=== PATIENT | female | born 1950 | race Hispanic/Latino ===

== ENCOUNTER 2018-04-12 06:53 | Day surgery (SDC) | payer MEDICARE ==
[2018-04-02 15:13] VITALS: BMI 26.2
[2018-04-12 07:26] LABS: BASO # 0.03 K/mm3 (0.0-2.0); BASO % 0.6 % (0.0-3.0); EOS # 0.1 (0.0-0.7); EOS % 2.9 % (1.5-5.0); GRAN # 2.53 (1.4-6.5); GRAN % 53.2 % (50.0-68.0); HEMOGLOBIN 13.9 g/dL (12.0-16.0); LYMPH # 1.8 (1.2-3.4); LYMPH % 37.8 % (22.0-35.0); MEAN CELL VOLUME 89.9 fl (80.0-105.0); MEAN CORPUSCULAR HEMOGLOBIN 29.8 pg (25.0-35.0); MEAN CORPUSCULAR HGB CONC 33.1 g/dl (31.0-37.0); MEAN PLATELET VOLUME 9.1 fl (7.0-11.0); MONO # 0.3 (0.1-0.6); MONO % 5.5 % (1.0-6.0); RBC 4.67 10^6/uL (3.5-6.1); RED CELL DISTRIBUTION WIDTH 12.4 % (11.5-14.5); WHITE BLOOD COUNT 4.8 10^3/ul (4.5-11.0)
[2018-04-12 07:31] LABS: INR 0.95; PARTIAL THROMBOPLASTIN TIME 31.8 Seconds (25.1-36.5); PROTHROMBIN TIME 10.9 SECONDS (9.4-12.5)
[2018-04-12 07:33] LABS: BLOOD UREA NITROGEN 23 mg/dL (7-21); CALCIUM 9.7 mg/dL (8.4-10.5); GFR NON-AFRICAN AMERICAN > 60; HDL CHOLESTEROL 65 mg/dL (29-60)
[2018-04-12 07:44] LABS: LDL CHOLESTEROL 100 mg/dL (0-129)
[2018-04-12] MEDS ORDERED: Iodixanol 320 MG/ML 200 ML BOTTLE IV ONE (08:08)
[2018-04-12] MEDS ORDERED: Verapamil 0 ML ONE (08:08)
[2018-04-12] MEDS ORDERED: Lidocaine 2% PF (10 ml) Amp ONE (08:08)
[2018-04-12 08:12] VITALS: RESP 20
[2018-04-12] MEDS ORDERED: Midazolam 2 MG/2 ML VIAL ONE ×2 (08:44→09:07)
--- NOTE | 2018-04-12 08:46 | HP ---
REASON FOR ADMISSION: Left heart catheterization, possible angioplasty, abnormal stress test. BRIEF CLINCIAL HISTORY: This is a 67-year-old female with past medical history significant for hypertension, gastroesophageal reflux, complaining of left shoulder pain on walking, went for stress test, abnormal, patient is scheduled for elective cardiac catheterization, possible angioplasty. PAST MEDICAL HISTORY: Significant for hypertension, gastroesophageal reflux. SOCIAL HISTORY: Denies smoking. Denies any history of alcohol abuse. RECENT CARDIAC WORKUP: As follows, patient had a stress test dated 03/16/2018 that shows probably abnormal myocardial perfusion study, partially reversible apical defect suspicious for ischemia, ejection fraction 63%, dated 03/16/2018. Patient had a stress test. Echo dated 03/15/2018, that showed ejection fraction 55% to 60%, mild mitral regurgitation, mild tricuspid regurgitation, dated 03/15/2018, RVSP 30. CURRENT MEDICATIONS: Patient is taking amlodipine 10 mg daily,Aspirin 81 mg daily, Nexium 40 mg daily, vitamin D 1000 units daily. ALLERGIES: NO KNOWN DRUG ALLERGY. REVIEW OF SYSTEMS: As per HPI. PHYSICAL EXAMINATION: VITAL SIGNS: As follows, height of the patient 5 feet 3 inches, weight of the patient 148 pounds, body mass index 26.2 kg/sq. m. Rest of the examination as follows, temperature afebrile, heart rate 68, blood pressure 130/80. HEENT: PERRLA. Extraocular muscles intact. NECK: Supple. No carotid bruits or thyromegaly. CHEST: Clear to auscultation. HEART: S1, S2 regular. ABDOMEN: Soft. EXTREMITIES: Clubbing and cyanosis, negative. LABORATORY DATA: Blood workup pending. IMPRESSION: Abnormal stress test suspicious for anterior wall ischemia, hypertension, hyperlipidemia, mild mitral regurgitation, mild tricuspid regurgitation. RECOMMENDATION: We will review the blood work when it is available. When the blood workup is available, is okay, we will load with aspirin, Plavix. Risks,benefits and alternatives were discussed with the patient. Patient agreed. We will proceed for cardiac catheterization. Further recommendation after cardiac catheterization. We will follow with you. Thank you, Dr. Terrazas, for providing us the opportunity in taking care of the patient, Felicita Adame. Inez Miller MD [facility] # [id number] SARAH
[2018-04-12] MEDS ORDERED: Bacitracin 500 Units/gm Oint Foilpak UD TOP ONE (09:35)
[2018-04-12] MEDS ORDERED: Sodium Chloride 0.9% 1,000 ML IV SCH (09:45)
[2018-04-12 09:57] VITALS: TEMP 97.9
--- NOTE | 2018-04-12 09:57 | CPOSTOP ---
DATE: 04/12/2018 CARDIOVASCULAR LAB POST PROCEDURE NOTE PHYSICIAN: Inez Miller MD. POLE TRUCK DRIVER: Justin health record technician. TYPE OF ANESTHESIA: Moderate conscious sedation. Total 3 of Versed, 150 of fentanyl given. Periodically started 1 mg Versed, 50 of fentanyl. PRE-PROCEDURE DIAGNOSES: Unstable angina, chest pain, abnormal stress test. PROCEDURE PERFORMED: Left heart catheterization. FINDINGS: Nonobstructive coronary artery disease. FINAL DIAGNOSIS: Nonobstructive coronary artery disease. VASCULAR ACCESS SITE: Left radial. CLOSURE DEVICE: TR Band. TOTAL RADIATION DOSE: 1908.56 milligray unit. TOTAL FLUORO TIME: 1.5 minutes. Inze Miller MD
[2018-04-12 10:53] VITALS: O2SAT 98
[2018-04-12] MEDS ORDERED: Bacitracin 500 Units/gm Oint Foilpak UD ONE (12:02)
[2018-04-12 13:23] VITALS: BP 110/66; PULSE 75
--- NOTE | 2018-04-12 14:46 | CARD ---
APPROVED REPORT Date of service: 04/12/2018 EKG Measurement Heart [id number] <Conclusion> Normal sinus rhythm Normal ECG
--- NOTE | 2018-04-12 14:52 | CARD ---
APPROVED REPORT Date of service: 04/12/2018 Procedure(s) performed: Left Heart Catheterization HISTORY The patient is a 67 year-old female with a history of : most recent EF: 63%. (EF Method: RADIONUCLIDE), hypertension , c/o Chest pain occasionally on walking who underwent Stress test, showed abnormal , apical ischemia.. INDICATION The indication(s) include : positive stress test. CASE TECHNIQUE The patient was brought electively to the Cardiac Catheterization Laboratory in a fasting state and was prepped and draped in a sterile manner. The left wrist was infiltrated with 2% Lidocaine subcutaneous anesthesia. A 6FR GLIDESJournalDocTH ACCESS KIT sheath was inserted into the left radial artery without difficulty. Coronary angiography was performed using coronary diagnostic catheters. The left coronary system was accessed and visualized with a Diagnostic,5 Fr JL 3.5 catheter. The right coronary system was accessed and visualized with a Diagnostic ,5 Fr JR 3.5 catheter. The left ventricle was accessed and visualized with a 5F PIGTAIL 145 CATH DXT 110 CM catheter. Left ventricular/Aortic Valve gradient assessed on pullback. Left ventriculogram was performed in BENNETT projection. Closure device was deployed with a Fr TR Band (Regular) without any complications. The patient tolerated the procedure well and there were no complications associated with the procedure. Vessel Analysis The patient's coronary anatomy is right dominant. The left main coronary artery is a large size vessel without significant stenosis. The left main bifurcates to the left anterior descending and circumflex. The left anterior descending artery is a medium size vessel with diffuse calcification noted throughout this vessel and without significant stenosis. There is a 30-40% stenosis in the mid segment. No focal stenosis , but change in calbre from proximal to Mid LAD , alsdio Mid LAD has intra myocardial course . The first diagonal branch is a medium size vessel without significant stenosis. The second diagonal branch is a medium size vessel without significant stenosis. The third diagonal branch is a small size vessel with intimal irregularities and without significant stenosis. The circumflex artery is a small size vessel with intimal irregularities and without significant stenosis. The first obtuse marginal branch is a small size vessel without significant stenosis. The right coronary artery is a medium size vessel without significant stenosis. The right posterior descending artery is a medium size vessel without significant stenosis. The right posterolateral branch is a medium size vessel without significant stenosis. Left Ventricle The left ventricle is normal in size with normal contractility. There was no cardiomyopathy. The left ventricular ejection fraction is estimated to be 60-65%. The left ventricular end diastolic pressure is 1012 mmHg. There was no gradient across the aortic valve upon pullback. Conclusion Non obstructive CAD limited to Mid LAD,Change in calibre from proximal to Mid LAD with 30-40% stenosis, but no flow limiting stenosis noted, Mid LAD has also Intra-myocardial course ( myocartdial Bridge). Preserved LV Fx. EF-60-65%. EDP-10-12 mmof Hg. Recommendations Aggressive Medical Therapy Consider GI W/u for non ischemic Chest pain. CC; dr. Terrazas
== END 2018-04-12 13:20 | disposition home or self-care (01) ==
LOC: CATH 06:53
PROVIDERS: ATTEND Internal Medicine Cardiovascular Disease
DX: I25.110 Atherosclerotic heart disease of native coronary artery with unstable angina pectoris (principal); I10 Essential (primary) hypertension; K21.9 Gastro-esophageal reflux disease without esophagitis; E78.5 Hyperlipidemia, unspecified; I08.1 Rheumatic disorders of both mitral and tricuspid valves; Z79.82 Long term (current) use of aspirin
CPT/HCPCS: 36415; 80048; 80061; 85025; 85610; 85730; 86850; 86900; 93005; 93458; 99152; 99153; C1769; C1887; J1644; J2250; J3010; J7030; Q9966

== ENCOUNTER 2018-06-18 09:10 | Day surgery (SDC) | payer MEDICARE ==
[2018-06-16 13:48] VITALS: BMI 26.5
[2018-06-18] MEDS ORDERED: Sodium Chloride 0.9% 1,000 ML IV SCH (11:00)
[2018-06-18] MEDS ORDERED: Propofol 10 mg/ml Inj (20 ML) ONE (11:12)
[2018-06-18 12:10] VITALS: RESP 18
[2018-06-18 13:06] VITALS: BP 104/63; PULSE 65; TEMP 97.7; O2SAT 100
== END 2018-06-18 13:48 | disposition home or self-care (01) ==
LOC: ENDO 09:10
PROVIDERS: ATTEND Internal Medicine Gastroenterology
DX: K21.9 Gastro-esophageal reflux disease without esophagitis (principal); K31.7 Polyp of stomach and duodenum; K44.9 Diaphragmatic hernia without obstruction or gangrene; K29.50 Unspecified chronic gastritis without bleeding; K31.89 Other diseases of stomach and duodenum
CPT/HCPCS: 43239; 88305; 88342; J2001; J2405; J2704; J7030; J7040